=== PATIENT | female | born 1990 | race Hispanic/Latino ===

== ENCOUNTER 2022-08-13 08:15 | Outpatient (CLI) | payer BC | END 2022-08-13 08:16 | disposition home or self-care (01) | LOC: TBSIIMAG 08:15 | PROVIDERS: ATTEND Nurse Practitioner Family | DX: S89.91XD Unspecified injury of right lower leg, subsequent encounter (principal); S83.281A Other tear of lateral meniscus, current injury, right knee, initial encounter ==